=== PATIENT | male | born 1955 ===

== ENCOUNTER 2017-08-19 13:30 | Day surgery (SDC) | payer OTHER ==
[~2017-08-19 13:30] MED LIST: ZOCOR40 MG PO
== END 2017-08-19 18:50 | disposition home or self-care (01) ==
LOC: CIR.AMB 13:30
DX: G57.61 Lesion of plantar nerve, right lower limb (principal); M65.871 Other synovitis and tenosynovitis, right ankle and foot

== ENCOUNTER 2018-04-16 10:17 | Emergency (ER) | payer OTHER ==
[~2018-04-16] VITALS: Ht 182.9 cm; Wt 88.5 kg
== END 2018-04-16 17:32 | disposition home or self-care (01) ==
LOC: ER 10:17
DX: M25.551 Pain in right hip (principal); M54.5 Low back pain